=== PATIENT | male | born 1970 | race Caucasian/White ===

== ENCOUNTER 2016-06-24 17:57 | Inpatient (IN) | payer OTHER ==
--- NOTE | ~2016-06-24 | PREOPHP ---
PreOp History and Physical [facility] [address] [place]. [address] NAME: MOSHE DURAN : 72 STATUS : ADM IN PAT#: [id number] AGE: 46 ADM/REG DATE : 06/24/16 MR#: [id number] REPORT SERV DATE: 06/25/16 DICTATED BY: GAETANO JETT DATE: 06/25/16 REPORT STATUS : Draft TRANSCRIBED BY: MODTyree DATE: 06/25/16 CHIEF COMPLAINT: Intractable back pain and left and right leg pain. HISTORY OF PRESENT ILLNESS: This is a 46-year-old male, who was seen yesterday afternoon by Nia Reid, my physician's ssn/ssbn assistant navigator. The patient at that time was having intractable back pain to the point that he could hardly stand and walk, his was having to assist him. The patient has had a long history of back problems dating back to 2012. He ultimately was treated by Dr. Zeke Carr and had a right-sided L4-L5 hemilaminectomy and partial facetectomy. He indicates he had some improvement after that surgery. He never had complete relief. He has continued to have intermittent periods of severe pain in the back down into the legs. He most recently was seen by Ashtyn Capps in [place], has been on different medications, has had physical therapy, has had the usual non-operative conservative care for much more than 3 months and has not made any significant improvements. He had a plain x-ray indicating a transitional level at the lumbosacral junction. One level above the transitional level is a grade 1 spondylolisthesis. There is also a rather marked disk degeneration 2 levels above the transitional area. The most recent MRI which is dated 06/24/2016 shows he has a right and left facet arthropathy at L3-L4 and disk herniation, right side greater than left, and impingement on the right side of the dural sac, he has an epidural lipomatosis with marked volume loss of the dural sac, and moderate foraminal stenosis is found. At L4-L5, there has been postoperative laminectomy and partial facetectomy, there is facet arthropathy. The patient has disk extrusion, right side greater than left, there is impingement on the right-sided nerve root in the foramen. There is severe collapse of the disk space at both L3-L4 and L4-L5. The patient yesterday afternoon when seen by Nia Reid had severe intractable pain with a pain of 10/10. He also had a feeling of numbness and tingling in the lower extremities. He is having trouble with just standing and walking. He has not had a recent alteration in the overall bowel and bladder function. He has recently had to miss work due to the intractable pain. PAST MEDICAL HISTORY: Includes tobacco abuse. PAST SURGICAL HISTORY: He has had a tonsillectomy and adenoidectomy and an L4-L5 laminectomy and diskectomy. CURRENT MEDICATIONS: Include Neurontin, hydrocodone, Robaxin, and prednisone. ALLERGIES: NONE. SOCIAL HISTORY: He is . 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 He also is smoking up to 2 packs per day. He does not use alcohol on a routine basis. FAMILY HISTORY: Noncontributory. REVIEW OF SYSTEMS: Otherwise negative. PHYSICAL EXAMINATION: PreOp History and Physical [address] [address] NAME: MOSHE DURAN : 72 STATUS : ADM IN [facility]#: [id number] AGE: 46 ADM/REG DATE : 06/24/16 MR#: [id number] REPORT SERV DATE: 06/25/16 DICTATED BY: GAETANO JETT DATE: 06/25/16 REPORT STATUS : Draft TRANSCRIBED BY: DU DATE: 06/25/16 VITAL SIGNS: He is 6 feet tall and 190 pounds. BMI is 26. GENERAL: He is alert, cooperative, and well oriented. He does have obviously painful low back and winces and demonstrates pain with movement. HEENT: He has long hair, he has a booker, but he is normocephalic. Pupils are equal, round, and reactive to light. Extraocular muscles are intact. Oral exam is grossly normal. LUNGS: Clear to auscultation. HEART: Rate is regular and rhythmic. ABDOMEN: Soft with good bowel sounds. No peritoneal signs are noted. MUSCULOSKELETAL: The spine itself has a previous midline incision which is healed. He does have paraspinous muscle spasm which is rather severe. The patient can transfer out of bed, but when he tries to lean forward, there is an audible click or a slip. He indicates that he hears this and feels this on a daily basis for the last few weeks. He says it occurs on both the left and right side, he can actually feel the instability. He does have a positive instability test. He has pain in the back with any kind of flexion, extension, side- bending, or rotation. He has negative straight leg raising sign for true radiculopathy. His motor strengths are 5/5. His reflexes are 1/4. Toes are downgoing. No ankle clonus found. No major sensory deficits found in either lower extremities. He cannot heel-walk or toe-walk due to the pain, it is so intractable in the back. Wadell signs are negative. FABERE signs are negative. ORTHOPEDIC: He has no pain with movement of hips, knees, or ankles. Her has pulses in all four extremities. No abnormal skin lesions are found. ASSESSMENT: 1. Previous laminectomy and facetectomy, L4-L5. 2. His L4-L5 spondylolisthesis was probable gross instability, but flexion and extension x- rays have not been taken as yet. 3. Severe disk degeneration, herniated nucleus pulposus, L3-L4. 4. Severe intractable back pain and thigh pain secondary to the above. RECOMMENDATIONS: He is on IV pain medication. We will obtain flexion and extension x-rays to assess the instability this morning. Further recommendations to follow. MELODY/DU Gaetano Jett D.O. / [id number] CC: Gaetano Jett D.O.
--- NOTE | ~2016-06-24 | OP ---
Record Of Operation [facility] [address] [place]. [address] NAME: MOSHE DURAN : 72 STATUS : ADM IN PAT#: [id number] AGE: 46 ADM/REG DATE : 06/24/16 MR#: [id number] REPORT SERV DATE: 06/25/16 DICTATED BY: GAETANO JETT DATE: 06/25/16 REPORT STATUS : Draft TRANSCRIBED BY: MODL DATE: 06/25/16 DATE OF PROCEDURE: 06/25/2016 PREOPERATIVE DIAGNOSES: 1. Grade 2 spondylolisthesis, L4-5, with foraminal stenosis and intractable radiculopathy. 2. Grade 1 spondylolisthesis and severe disk degeneration, with instability, L3-4. 3. Herniated nucleus pulposus, right L3-4. POSTOPERATIVE DIAGNOSES: 1. Grade 2 spondylolisthesis, L4-5, with foraminal stenosis and intractable radiculopathy. 2. Grade 1 spondylolisthesis and severe disk degeneration, with instability, L3-4. 3. Herniated nucleus pulposus, right L3-4. PROCEDURE: 1. Microscopic and navigation-assisted surgery. 2. Right L3-4 hemilaminectomy, foraminotomy, facetectomy, transforaminal diskectomy, anterior interbody cage insertion, posterolateral interbody fusion, with local bone graft and allograft. 3. Left and right L4-5 hemilaminectomy, foraminotomy, facetectomy, transforaminal diskectomy, anterior interbody cage insertion, posterolateral interbody fusion, with local bone graft, and allograft. 4. Posterior percutaneous Voyager instrumentation, L3-L5. SURGEON: Gaetano Jett D.O. ASSOCIATE ART DIRECTOR: Yaz Huston. ANESTHESIA: General. ESTIMATED BLOOD LOSS: 200 mL. INDICATION FOR SURGERY: This is a 46-year-old male, admitted from the office yesterday with intractable back pain and leg pain, both left and right side. The patient's symptoms had not responded to any kind of care outside the hospital. Plain x-rays did reveal a transitional level at the lumbosacral junction. There was a grade 1 spondylolisthesis noted at L4-5, but then in the hospital today, I took standing lateral flexion and extension x- rays, the patient has almost a grade 2.5 spondylolisthesis with gross instability, much more than 4 mm of translation at L4-5. The patient also has a grade 1 spondylolisthesis with instability, translating 5 mm at L3-4. In addition, the MRI shows that there is moderate-to severe spinal stenosis in the foraminal zone and I would rate this as definitely moderate-to severe at L4-5. There is also a large disk herniation on the right at L3-4 associated with the spondylolisthesis. The patient has subjective complaints of feeling the instability with a clicking and slipping that was causing him severe pain that seems he feels a click and slip. Because of all the above, the patient was brought to surgery for the above procedure. Prior to surgery, risks, benefits, alternatives, and expectations were explained. Consent form was signed. Record Of Operation [facility] [address] [facility] [place]. [address] NAME: MOSHE DURAN : 72 STATUS : ADM IN [facility]#: [id number] AGE: 46 ADM/REG DATE : 06/24/16 MR#: [id number] REPORT SERV DATE: 06/25/16 DICTATED BY: GAETANO JETT DATE: 06/25/16 REPORT STATUS : Draft TRANSCRIBED BY: DU DATE: 06/25/16 PROCEDURE IN DETAIL: The patient was identified in the preop holding area, antibiotic prophylaxis was given. Neurophysiology monitoring leads were inserted. The patient was brought to the operative suite. General anesthetic including endotracheal intubation was administered. Roldan catheter was placed in sterile technique. The patient was placed prone on a Hunter spine frame. Bony prominences were carefully padded. Thoracolumbar spine scrubbed with Hibiclens solution. DuraPrep was painted. Sterile drapes were applied. Because of the complexity of surgery, and the need to identify the correct level of surgery intraoperatively, as well as the desire to carry out the safest and most precise dissection, I felt intraoperative navigation was mandatory. A small stab wound was carried out over the right posterior superior iliac spine. A percutaneous pin with navigational frame attached was inserted in PSIS. Intraoperative CT scan with O-arm was obtained, CT information was used to register the navigational system. With navigational assistance, I identified the L3-4 and L4-5 level on the right side. I carried out approximately a 5 cm skin incision just lateral to the facet joint at L3-4 and L4-5. I initially placed a blunt navigated probe through the fascia and muscle, and docked over the remaining facet joint of L4-5. The patient had a significant laminectomy and partial facetectomy. After docking over the facet joint, the muscle dilators were inserted, and I placed a tubular retractor attached to an arm mount on the table. The microscope was sterilely draped and used throughout the remainder of the procedure. As soon as I debrided the soft tissue around the facet joint. I saw that the patient had a pars defect and I suspect this was because the pars was so thin from the previous laminectomy. His Pars fracture was older as the edges of the bone were smooth. This did not appear to be an isthmic type of spondylolisthesis. I think this was an iatrogenic spondylolisthesis created with a pars fracture. The complete facet joint was removed. The superior articular process of L5, was removed from [id number]. I completely decompressed the exiting L4 nerve root which was markedly compressed, due to a combination of facet hypertrophy, and was also disk material that had rolled behind the body of L4 causing nerve compression. After the transforaminal diskectomy, the wound was irrigated. The retractor was removed. I then moved to the top portion of the skin incision and placed a blunt navigated probe through the fascia and muscle and docked over the L3-4 facet joint. I inserted the tubular retractor. Once again, I worked from [id number], I removed the entire facet joint at the superior articular process of L4 down to the top of the pedicle. I removed the pars interarticularis and the lamina of L3 and the inferior articular process of L3. The exiting L3 nerve root was markedly compressed by the disk herniation which had migrated behind the body of L3 laterally and superiorly. The herniation was markedly compressing in the L3 nerve root. A transforaminal diskectomy was carried out with curettes, rongeurs, and disk aleksey. Intradiscal trial was carried out. The wounds were irrigated. The local bone graft was mixed with allograft and the graft was inserted through the interbody space. The Record Of Operation [facility] [address] [facility] [place]. [address] NAME: RENEEMOSHE : 72 STATUS : ADM IN [facility]#: [id number] AGE: 46 ADM/REG DATE : 06/24/16 MR#: [id number] REPORT SERV DATE: 06/25/16 DICTATED BY: GAETANO JETT DATE: 06/25/16 REPORT STATUS : Draft TRANSCRIBED BY: DU DATE: 06/25/16 capstone cage was then inserted through the middle of the graft into the midline against the anterior longitudinal ligament. A posterolateral interbody fusion with local bone graft and allograft was completed. I then moved to the left side. I carried out a 5 cm skin incision just lateral to the facet joints as previously noted. I then placed a blunt navigated probe through the fascia and muscle, inferiorly and docked over the L4-5 facet joint. I continued with completing the hemilaminectomy, foraminotomy, and facetectomy, again, I carried out a transforaminal diskectomy. Again, the nerve was markedly compressed on the exiting L4 nerve root just as noted on the right side. Once again, the same identical interbody trial, interbody cage insertion was carried out with the posterolateral interbody fusion at L4-5, as I had done at L3-4 on the right side. The retractor was removed. I then used a percutaneous Voyager pedicle tap and screw lasting machine operator bed. I tapped the pedicles of L3, L4, and L5 bilaterally. Polyaxial Voyager screws 7.5 x 55 mm in length were inserted at L3, L4, and L5 bilaterally. After the screws were placed, the 70 mm rosalba was contoured lordotic was placed through the top portion of the screw extenders, reduced into the tulip of the pedicle screw. The set screws were inserted and tightened with a torque wrench providing rigid stability. Screw extenders were removed. Intraoperative CT scan with O-arm was obtained, CT information showed good position of all implants, good mosque of disk height, and complete decompression of the nerve root. The wound was irrigated. The fascial opening was closed with a single interrupted #1 Vicryl suture. The subcutaneous tissue was closed with 2-0 Vicryl suture, 2-0 vertical mattress nylon suture was used for skin closure. Sterile dressings were applied. The patient returned to the supine position, awakened, extubated, and taken to recovery room in satisfactory condition having tolerated procedure well. MELODY/DU Gaetano Jett D.O. / [id number] CC: Gaetano Jett D.O.
[2016-06-24 19:26] LABS: BASOPHILS 0.6 %; BASOPHILS ABSOLUTE 0.04 10/3/uL (0.0-0.16); EOSINOPHILS 3.3 %; EOSINOPHILS ABSOLUTE 0.22 10/3/uL (0.0-0.53); HEMATOCRIT 43.2 % (40.0-51.0); HEMOGLOBIN 14.2 g/dL (13.6-17.8); IMMATURE GRANULOCYTES 0.3 %; IMMATURE GRANULOCYTES ABSOLUTE 0.02 10/3/uL (0.0-0.11); LYMPHOCYTES 34.5 %; LYMPHOCYTES ABSOLUTE 2.32 10/3/uL (0.67-4.30); MEAN CORPUS HGB CONC 32.9 g/dL (32.0-36.0); MEAN CORPUSCULAR HEMOGLOB 31.4 pg (26.0-34.0); MEAN CORPUSCULAR VOLUME 95.6 fL (80-100); MEAN PLATELET VOLUME 9.6 fL (9.2-13.0); MONOCYTES 10.3 %; MONOCYTES ABSOLUTE 0.69 10/3/uL (0.21-1.20); NEUTROPHILS ABSOLUTE 3.43 10/3/uL (2.02-8.40); PLATELET COUNT 180 10/3/uL (150-400); RBC DISTRIBUTION WIDTH 14.2 % (12.0-16.0); RED CELL COUNT 4.52 10/6/uL (4.7-6.1); WHITE BLOOD CELLS 6.7 10/3/uL (4.5-10.5)
[2016-06-24 19:28] LABS: MANUAL DIFF NO %
[2016-06-24 19:31] LABS: PROTIME (NOT ORD) 13.1 SEC (12.0-14.5)
[2016-06-24] MEDS ORDERED: NORCO1 TA2 PO (23:11)
[2016-06-24] MEDS ORDERED: NEUR300 PO (23:12)
[2016-06-24] MEDS ORDERED: NORCO1 TA1 PO (23:14)
[2016-06-24] MEDS ORDERED: STERAP512 PO (23:17)
[2016-06-24] MEDS ORDERED: METHOC750B PO (23:18)
[2016-06-25 11:46] LABS: ASCORBIC ACID (UR NOT ORDER) NEG (NEG); BILIRUBIN, URINE NEGATIVE (NEG); KETONE, URINE NEGATIVE (NEG); LEUKOCYTE ESTERASE(NOT OR NEG (NEG); WBC (NOT ORDERED) (RFLEX) < 1 (0-5)
[2016-06-25 19:17] LABS: BASOPHILS 0.1 %; BASOPHILS ABSOLUTE 0.01 10/3/uL (0.0-0.16); EOSINOPHILS 0.3 %; EOSINOPHILS ABSOLUTE 0.03 10/3/uL (0.0-0.53); HEMATOCRIT 40.4 % (40.0-51.0); HEMOGLOBIN 13.7 g/dL (13.6-17.8); IMMATURE GRANULOCYTES 0.8 %; IMMATURE GRANULOCYTES ABSOLUTE 0.07 10/3/uL (0.0-0.11); LYMPHOCYTES 9.9 %; LYMPHOCYTES ABSOLUTE 0.86 10/3/uL (0.67-4.30); MEAN CORPUS HGB CONC 33.9 g/dL (32.0-36.0); MEAN CORPUSCULAR HEMOGLOB 31.6 pg (26.0-34.0); MEAN CORPUSCULAR VOLUME 93.3 fL (80-100); MEAN PLATELET VOLUME 10.1 fL (9.2-13.0); MONOCYTES 3.2 %; MONOCYTES ABSOLUTE 0.28 10/3/uL (0.21-1.20); NEUTROPHILS 85.7 %; NEUTROPHILS ABSOLUTE 7.47 10/3/uL (2.02-8.40); PLATELET COUNT 183 10/3/uL (150-400); RBC DISTRIBUTION WIDTH 14.2 % (12.0-16.0); RED CELL COUNT 4.33 10/6/uL (4.7-6.1); WHITE BLOOD CELLS 8.7 10/3/uL (4.5-10.5)
[2016-06-25 19:18] LABS: MANUAL DIFF NO %
[2016-06-25 19:28] LABS: BUN (BLOOD UREA NITROGEN) 12 MG/DL (6-23); CALCIUM, SERUM 8.8 MG/DL (8.5-10.4); CHLORIDE, SERUM 108 MMOL/L (96-112); CO2 (CARBON DIOXIDE) 26 MMOL/L (24-34); CREATININE 0.94 MG/DL (0.70-1.30); GFR AFRICAN AMERICAN 113 ML/MIN (>=60); GFR NON AFRICAN AMERICAN 98 ML/MIN (>=60); GLUCOSE, SERUM 155 MG/DL (60-99); POTASSIUM, SERUM 4.1 MMOL/L (3.5-5.3); SODIUM, SERUM 142 MMOL/L (135-148)
[2016-06-26 05:31] LABS: BASOPHILS 0.1 %; BASOPHILS ABSOLUTE 0.01 10/3/uL (0.0-0.16); EOSINOPHILS 0 %; HEMATOCRIT 38.8 % (40.0-51.0); HEMOGLOBIN 12.8 g/dL (13.6-17.8); IMMATURE GRANULOCYTES 0.3 %; IMMATURE GRANULOCYTES ABSOLUTE 0.06 10/3/uL (0.0-0.11); LYMPHOCYTES ABSOLUTE 0.54 10/3/uL (0.67-4.30); MANUAL DIFF NO %; MEAN CORPUSCULAR HEMOGLOB 31.1 pg (26.0-34.0); MEAN CORPUSCULAR VOLUME 94.2 fL (80-100); MEAN PLATELET VOLUME 10.6 fL (9.2-13.0); MONOCYTES 5.2 %; MONOCYTES ABSOLUTE 0.94 10/3/uL (0.21-1.20); NEUTROPHILS 91.4 %; NEUTROPHILS ABSOLUTE 16.45 10/3/uL (2.02-8.40); PLATELET COUNT 195 10/3/uL (150-400); RBC DISTRIBUTION WIDTH 14.3 % (12.0-16.0); RED CELL COUNT 4.12 10/6/uL (4.7-6.1)
[2016-06-26 05:47] LABS: BUN (BLOOD UREA NITROGEN) 9 MG/DL (6-23); CHLORIDE, SERUM 103 MMOL/L (96-112); CO2 (CARBON DIOXIDE) 27 MMOL/L (24-34); CREATININE 0.94 MG/DL (0.70-1.30); GFR AFRICAN AMERICAN 113 ML/MIN (>=60); GFR NON AFRICAN AMERICAN 98 ML/MIN (>=60); GLUCOSE, SERUM 237 MG/DL (60-99); POTASSIUM, SERUM 3.8 MMOL/L (3.5-5.3); SODIUM, SERUM 139 MMOL/L (135-148)
[2016-06-26] MEDS ORDERED: OXYCOD PO (09:11)
[2016-06-26] MEDS ORDERED: HABIT14 TOP (09:11)
== END 2016-06-26 12:42 | disposition home or self-care (01) | DRG 460 ==
LOC: 1SO 17:57 → 3SO 06-25 20:41
PROVIDERS: Orthopaedic Surgery Orthopaedic Surgery of the Spine
PROC: 0SG10AJ Fusion of 2 or more Lumbar Vertebral Joints with Interbody Fusion Device, Posterior Approach, Anterior Column, Open Approach (ICD-10-PCS; principal; 2016-06-24)
PROC: 0ST20ZZ Resection of Lumbar Vertebral Disc, Open Approach (ICD-10-PCS; 2016-06-24)
PROC: 4A11X4G Monitoring of Peripheral Nervous Electrical Activity, Intraoperative, External Approach (ICD-10-PCS; 2016-06-24)
DX: M51.16 Intervertebral disc disorders with radiculopathy, lumbar region (principal)
CPT/HCPCS: 71010; 72100; 72120; 80048; 81001; 82962; 85025; 85610; 87641; 88304; 88311; 97161-GP; A9270-GY; C1713; J0690; J1170; J1644; J2250; J2370; J2405; J3010; J3370